=== PATIENT | male | born 1960 | race Caucasian/White ===

== ENCOUNTER → 2018-03-11 | Outpatient (CLI) | payer SELFPAY ==
[2018-03-11 15:05] LABS: HCT 44.8 % (39.0-53.0); HGB 14.8 gm/dL (13.0-17.5); MCH 30.1 pg (25.0-35.0); MCV 91.1 fL (80.0-100.0); Mean Platelet Volume 6.9; Platelet Count 227 k/uL (150-450); RBC 4.91 m/uL (4.30-5.90); RDW 12.8 % (11.5-15.5); WBC 6.4 k/uL (3.8-10.6)
[2018-03-11 15:16] LABS: Anion Gap 6 mmol/L; Blood Urea Nitrogen 17 mg/dL (9-20); Carbon Dioxide 31 mmol/L (22-30); Chloride 104 mmol/L (98-107); Glucose 100 mg/dL (74-99); Potassium 4.3 mmol/L (3.5-5.1); Sodium 141 mmol/L (137-145)
== END ==
LOC: LABPAT 14:21
PROVIDERS: ATTEND Internal Medicine Interventional Cardiology
DX: Z01.812 Encounter for preprocedural laboratory examination (principal); I25.10 Atherosclerotic heart disease of native coronary artery without angina pectoris
CPT/HCPCS: 80051; 82565; 82947; 84520; 85027

== ENCOUNTER 2018-03-12 06:32 | Day surgery (SDC) | payer BC, OTHER ==
[2018-03-12] MEDS ORDERED: ASPIRIN 81 MG ONE (07:05)
[2018-03-12 07:21] VITALS: TEMP 98
[2018-03-12] MEDS ORDERED: VERAPAMIL 2.5 MG/ML 2 ML AMP ONE (07:21)
[2018-03-12] MEDS ORDERED: LIDOCAINE 1% INJ 10MG/ML (20 ML MDV) ONE (07:21)
[2018-03-12] MEDS ORDERED: HEPARIN SODIUM 1,000 UN/ML (10ML VL) ONE (07:22)
[2018-03-12] MEDS ORDERED: ATORVASTATIN 80 MG TAB PO STA (07:26)
[2018-03-12] MEDS ORDERED: ALPRAZolam 0.5 MG TAB PO PRN (07:26)
[2018-03-12] MEDS ORDERED: NITROGLYCERIN SL TABS 0.4 MG TAB SUBLINGUAL PRN (07:26)
[2018-03-12] MEDS ORDERED: SODIUM CHLORIDE 0.9% 1,000 ML in EMPTY BAG 1 BAG IV ONE (07:26)
[2018-03-12] MEDS ORDERED: ASPIRIN 325 MG TAB PO STA (07:26)
[2018-03-12] MEDS ORDERED: ALPRAZolam 0.25 MG TAB PO PRN (07:26)
[2018-03-12] MEDS ORDERED: MIDAZOLAM 2 MG/2 ML VIAL IVP ONE (07:41)
[2018-03-12] MEDS ORDERED: LIDOCAINE 1% INJ 10MG/ML (20 ML MDV) SQ ONE (07:44)
[2018-03-12] MEDS ORDERED: VERAPAMIL SYRINGE (5 MG/10 ML) INTRAARTER ONE (07:46)
[2018-03-12] MEDS ORDERED: fentaNYL (PF) 50 MCG/ML 2 ML AMP ONE (07:50)
[2018-03-12] MEDS ORDERED: MIDAZOLAM 2 MG/2 ML VIAL IV ONE (07:50)
[2018-03-12] MEDS ORDERED: fentaNYL (PF) 50 MCG/ML 2 ML AMP IVP ONE (07:52)
[2018-03-12] MEDS ORDERED: HEPARIN SODIUM 1,000 UN/ML (10ML VL) IV ONE (07:53)
[2018-03-12] MEDS ORDERED: IOPAMIDOL-370 100ML BTL INJ ONE (07:57)
[2018-03-12] MEDS ORDERED: SODIUM CHLORIDE 0.9% 1,000 ML IV SCH (08:15)
[2018-03-12 11:46] VITALS: RESP 16
--- NOTE | 2018-03-12 12:00 | CC ---
CARDIAC CATHETERIZATION REPORT DATE OF SERVICE: 03/12/2018 PROCEDURE: Left heart catheterization and coronary angiography. PERFORMED BY: Dr. Josefina Ibarra. Moderate conscious sedation time was 16 minutes. Patient was administered Versed and fentanyl. His oxygen saturation, hemodynamics and EKG were monitored closely. CLINICAL INFORMATION: Mr. Rubio Godoy is a 57-year-old gentleman with a known history of CAD. In September 2012, he had a non-ST elevation MN and underwent stenting of the proximal and mid RCA and as well as the second obtuse marginal branch of circumflex. Subsequent in June of 2013, he had mid circumflex stented and angioplasty of the first obtuse marginal. Since then, he has done well. I performed a cardiac cath in April of 2014 and the 3 areas of stenting involving the first obtuse marginal, mid circumflex and also the proximal RCA were widely patent. He has been having symptoms of chest tightness, pressure, and jaw discomfort suggestive of angina. However, he had a stress Cardiolite scan which revealed a very mild partial reversible inferoapical lateral defect and therefore was advised cardiac catheterization. Patient is a very active person and does quite a bit of jogging, and seems to have the symptoms suggestive of angina, which are fairly recent. He was advised coronary angiography. Risks, benefits, options, rationale were explained to the patient. PROCEDURE NOTE: Under local anesthesia and strict aseptic precautions, a 6-Arabic introducer was placed in the right radial artery. Using a JR4 and JL35 catheters, I performed coronary angiography and the right catheter was used to check LV pressures. LV gram was not performed. The sheath was taken out and TR band applied as per protocol. The saturation the fingers of the right hand was 97%. Patient received 2000 units of heparin intravenously. The patient tolerated the procedure well without complications. CARDIAC CATHETERIZATION FINDINGS: The left ventricle end-diastolic pressure was about 12 mmHg without any gradient across the aortic valve. CORONARY ANGIOGRAPHY: This right coronary artery is a large dominant vessel, has no significant disease in the proximal area where it was stented is widely patent and distally bifurcates into PDA and PLV, both of which supply a sizable amount of myocardium. No significant disease in the dominant RCA. The stented segment proximally is widely patent. LEFT MAIN CORONARY ARTERY: Short patent vessel free of significant disease that bifurcates into LAD and circumflex. LEFT ANTERIOR DESCENDING CORONARY ARTERY: Good caliber vessel extends along the anterior wall, gives off septal and diagonal branches., runs all the way to the apex, supplies a sizable amount of myocardium. There are minor irregularities but no significant disease is noted. There is no more than 30% to 35% narrowing in the LAD system. LEFT POSTERIOR CIRCUMFLEX CORONARY ARTERY: A nondominant vessel, mid circumflex at the site of stenting is widely patent. First obtuse marginal that was stented and it is widely patent. Second obtuse marginal is also free of significant disease. In fact, this is a continuation of the circumflex vessel. There is no significant disease in the circumflex. LEFT VENTRICULOGRAM: This was not performed. FINAL IMPRESSION: This patient has no significant obstructive coronary artery disease at the site of previous stenting in the mid circumflex, first obtuse marginal as well as proximal right coronary artery are widely patent. He has a right dominant system. Normal filling pressures. No gradient across the aortic valve and left anterior descending artery has no significant disease. RECOMMENDATIONS: Continued medical therapy with risk factor modification is advised and patient will be discharged later on today if he remains stable. MMODL / IJN: [id number] /
[2018-03-12 12:51] VITALS: BP 119/68; PULSE 67
== END 2018-03-12 13:51 | disposition home or self-care (01) ==
LOC: CATHCVL 06:32
PROVIDERS: ATTEND Internal Medicine Interventional Cardiology
DX: R94.39 Abnormal result of other cardiovascular function study (principal); I25.10 Atherosclerotic heart disease of native coronary artery without angina pectoris; Z95.5 Presence of coronary angioplasty implant and graft; E78.00 Pure hypercholesterolemia, unspecified; I10 Essential (primary) hypertension; E78.5 Hyperlipidemia, unspecified; I25.2 Old myocardial infarction; Z79.02 Long term (current) use of antithrombotics/antiplatelets; Z79.82 Long term (current) use of aspirin; Z79.899 Other long term (current) drug therapy
CPT/HCPCS: 93458; C1769; C1894; J2250; J2001; J3010; J1644; Q9967

== ENCOUNTER 2024-05-06 14:01 | Observation (INO) | payer BC, MEDICARE ==
--- NOTE | 2024-05-06 14:56 | ED ---
General Adult HPI - General Chief complaint: Chest Pain Stated complaint: chest pain, chay arm pain Time Seen by Provider: 05/06/24 14:36 Source: EMS Mode of arrival: EMS - History of Present Illness Initial comments: Dictation was produced using [employer] dictation software. please excuse any grammatical, word or spelling errors. Chief Complaint: 64-year-old male with chest pain History of Present Illness: Patient 64-year-old male presents via EMS for chest pain. This morning he had a upper thoracic epidural injection performed by pain specialist. After that injection he started to have some sharp chest pain. States that he has extensive history of heart attacks. His director of guidance is Dr. Ibarra. States that his symptoms feel like previous heart attack. States that the pain radiates down both arms. Not associated diaphoresis or nausea. She given 2 nitro and aspirin by prehospital providers. Nitro improved his symptoms. The ROS documented in this emergency department record has been reviewed and confirmed by me. Those systems with pertinent positive or negative responses have been documented in the HPI. All other systems are other negative and/or noncontributory. - Related Data Home Medications Medication Instructions Recorded Confirmed Atorvastatin [Lipitor] 80 mg PO DAILY 07/25/13 03/12/18 Metoprolol Succinate [Toprol XL] 25 mg PO DAILY 07/25/13 03/12/18 Nitroglycerin Sl Tabs [Nitrostat] 0.4 mg SL Q5M PRN 07/25/13 03/12/18 lisinopriL [Zestril] 2.5 mg PO DAILY 07/25/13 03/12/18 Previous Rx's Medication Instructions Recorded Acetaminophen Tab [Tylenol] 650 mg PO Q4HR PRN #1 tab 04/28/14 Aspirin 81 mg PO DAILY #30 chew 04/28/14 Allergies Allergy/AdvReac Type Severity Reaction Status Date / Time methylprednisolone Allergy Rash/Hives Verified 05/06/24 16:07 [From Medrol] Review of Systems ROS Statement: Those systems with pertinent positive or pertinent negative responses have been documented in the HPI. ROS Other: All systems not noted in ROS Statement are negative. Past Medical History Past Medical History: Coronary Artery Disease (CAD), Chest Pain / Angina, Hyperlipidemia, Hypertension, Myocardial Infarction ([place]) Additional Past Medical History / Comment(s): LEFT LEG FX- STATES WEARING A WALKING "BOOT" SHILNGLES- Last Myocardial Infarction Date:: 09/2012 History of Any Multi-Drug Resistant Organisms: None Reported Past Surgical History: Back Surgery, Heart Catheterization With Stent Additional Past Surgical History / Comment(s): total 3 heart catheterizations HAS 3 STENTS TOTAL, vasectomy, fx left collar bone Past Anesthesia/Blood Transfusion Reactions: No Reported Reaction Date of Last Stent Placement:: 07/09/13 Past Psychological History: No Psychological Hx Reported Smoking Status: Current every day smoker Past Alcohol Use History: Occasional Past Drug Use History: Marijuana - Past Family History Father Family Medical History: Cancer Mother Family Medical History: Cancer General Exam - General Exam Comments Initial Comments: PHYSICAL EXAM: General Impression: Alert and oriented x3, not in acute distress HEENT: Normocephalic atraumatic, extra-ocular movements intact, pupils equal and reactive to light bilaterally, mucous membranes moist. Cardiovascular: Heart regular rate and rhythm Chest: Able to complete full sentences, no retractions, no tachypnea Abdomen: abdomen soft, non-tender, non-distended, no organomegaly Musculoskeletal: Pulses present and equal in all extremities, no peripheral edema Motor: no focal deficits noted Neurological: CN II-XII grossly intact, no focal motor or sensory deficits noted Skin: Intact with no visualized rashes Psych: Normal affect and mood Course Vital Signs 05/06/24 14:26 Temperature 98.7 F Pulse Rate 91 Respiratory 16 Rate Blood Pressure 135/107 O2 Sat by Pulse 98 Oximetry EKG Findings - EKG Comments: EKG Findings:: My EKG interpretation: Ventricular rate 80, sinus rhythm,. 156, QRS 88, QTc 406. No [place] prolongation, no QTC prolongation, no ST or T-wave changes noted. Overall, this EKG is unremarkable Medical Decision Making - Medical Decision Making Was pt. sent in by a medical professional or institution (, PA, CEMENT RAILROAD CAR LOADER, urgent care, hospital, or alf...) When possible be specific @ -No Did you speak to anyone other than the patient for history (EMS, parent, family, police, friend...)? What history was obtained from this source @ -No Did you review nursing and triage notes (agree or disagree)? Why? @ -I reviewed and agree with nursing and triage notes Were old charts reviewed (outside hosp., previous admission, EMS record, old EKG, old radiological studies, urgent care reports/EKG's, alf records)? Report findings @ -No old charts were reviewed Differential Diagnosis (chest pain, altered mental status, abdominal pain women, abdominal pain men, vaginal bleeding, musculoskeletal, weakness, fever, dyspnea, syncope, headache, dizziness, GI bleed, back pain, seizure, CVA, palpatations, mental health)? @ -Differential Chest Pain: Stable Angina, Unstable Angina, STEMI, NSTEMI Aortic Dissection, Pneumothorax, Musculoskeletal, Esophageal Spasm GERD, Cholecystitis, Pancreatitis, Zoster, this is not meant to be an all-inclusive list. EKG interpreted by me (3pts min.). @ -See above X-rays interpreted by me (1pt min.). @ -Chest x-ray is nonacute CT interpreted by me (1pt min.). @ -None done U/S interpreted by me (1pt. min.). @ -None done What testing was considered but not performed or refused? (CT, X-rays, U/S, labs)? Why? @ -None What meds were considered but not given or refused? Why? @ -None Was smoking cessation discussed for >3mins.? @ -No Were there social determinants of health that impacted care today? How? (Homelessness, low income, unemployed, alcoholism, drug addiction, transportation, low edu. Level, literacy, decrease access to med. care, group home, rehab)? @ -No Was there de-escalation of care discussed even if they declined (Discuss DNR or withdrawal of care, Hospice)? DNR status @ -No What co-morbidities impacted this encounter? (DM, HTN, Smoking, COPD, CAD, Cancer, CVA, ARF, Chemo, Hep., AIDS, mental health diagnosis, sleep apnea, morbid obesity)? @ -Coronary artery disease Was patient admitted / discharged? Hospital course, mention meds given and route, prescriptions, significant lab abnormalities, going to OR and other pertinent info. @ -64-year-old male presents to the ER for chest pain. His atypical typical features going signs upon arrival are within acceptable limits. Labs and imaging unremarkable. EKG is nonacute. Discussed with hospitalist for admission. Patient received aspirin by prehospital providers. Did you discuss the management of the patient with other professionals (hortencia yoon ijeff Morris, PA, CEMENT RAILROAD CAR LOADER, lab, RT, psych nurse, social work nurse, manager cardiac, teacher, juvenile detention officer, behavioral health case manager)? Give summary @ -See above Was critical care preformed (if so, how long)? @ -No Undiagnosed new problem with uncertain prognosis? @ -No Drug Therapy requiring intensive monitoring for toxicity (Heparin, Nitro, Insulin, Cardizem)? @ -No Were any procedures done? @ -No Diagnosis/symptom? Acute, or Chronic, or Acute on Chronic? Uncomplicated (without systemic symptoms) or Complicated (systemic symptoms)? @ -Chest pain Side effects of treatment? @ -No Exacerbation, Progression, or Severe Exacerbation? @ -No Poses a threat to life or bodily function? How? (Chest pain, [place], [place], pneumonia, PE, COPD, DKA, ARF, appy, cholecystitis, CVA, Diverticulitis, Homicidal, Suicidal, threat to staff... and all critical care pts) @ -yes - Lab Data Result diagrams: 05/06/24 14:48 05/06/24 14:55 Lab Results 05/06/24 05/06/24 05/06/24 Range/Units 14:48 14:55 14:55 WBC 6.3 (3.8-10.6) k/uL RBC 5.28 (4.30-5.90) m/uL Hgb 15.6 (13.0-17.5) gm/dL Hct 47.5 (39.0-53.0) % MCV 90.0 (80.0-100.0) fL MCH 29.5 (25.0-35.0) pg MCHC 32.8 (31.0-37.0) g/dL RDW 12.5 (11.5-15.5) % Plt Count 249 (150-450) k/uL MPV 7.8 Neutrophils % 87 % Lymphocytes % 11 % Monocytes % 2 % Eosinophils % 0 % Basophils % 0 % Neutrophils # 5.5 (1.3-7.7) k/uL Lymphocytes # 0.7 L (1.0-4.8) k/uL Monocytes # 0.1 (0-1.0) k/uL Eosinophils # 0.0 (0-0.7) k/uL Basophils # 0.0 (0-0.2) k/uL PT 10.5 (10.0-12.5) sec INR 0.9 (<1.2) APTT 23.9 (22.0-30.0) sec Sodium 138 (137-145) mmol/L Potassium 4.1 (3.5-5.1) mmol/L Chloride 103 (98-107) mmol/L Carbon Dioxide 23 (22-30) mmol/L Anion Gap 12 mmol/L BUN 16 (9-20) mg/dL Creatinine 0.80 (0.66-1.25) mg/dL Est GFR (CKD-EPI)AfAm >90 (>60 ml/min/1.73 sqM) Est GFR (CKD-EPI)NonAf >90 (>60 ml/min/1.73 sqM) Glucose 121 H (74-99) mg/dL Calcium 9.5 (8.4-10.2) mg/dL Magnesium 2.3 (1.6-2.3) mg/dL Total Bilirubin 1.6 H (0.2-1.3) mg/dL AST 29 (17-59) U/L ALT 29 (4-49) U/L Alkaline Phosphatase 74 (38-126) U/L Troponin I (0.000-0.034) ng/mL Total Protein 7.8 (6.3-8.2) g/dL Albumin 4.9 (3.5-5.0) g/dL 05/06/24 Range/Units 14:55 WBC (3.8-10.6) k/uL RBC (4.30-5.90) m/uL Hgb (13.0-17.5) gm/dL Hct (39.0-53.0) % MCV (80.0-100.0) fL MCH (25.0-35.0) pg MCHC (31.0-37.0) g/dL RDW (11.5-15.5) % Plt Count (150-450) k/uL MPV Neutrophils % % Lymphocytes % % Monocytes % % Eosinophils % % Basophils % % Neutrophils # (1.3-7.7) k/uL Lymphocytes # (1.0-4.8) k/uL Monocytes # (0-1.0) k/uL Eosinophils # (0-0.7) k/uL Basophils # (0-0.2) k/uL PT (10.0-12.5) sec INR (<1.2) APTT (22.0-30.0) sec Sodium (137-145) mmol/L Potassium (3.5-5.1) mmol/L Chloride (98-107) mmol/L Carbon Dioxide (22-30) mmol/L Anion Gap mmol/L BUN (9-20) mg/dL Creatinine (0.66-1.25) mg/dL Est GFR (CKD-EPI)AfAm (>60 ml/min/1.73 sqM) Est GFR (CKD-EPI)NonAf (>60 ml/min/1.73 sqM) Glucose (74-99) mg/dL Calcium (8.4-10.2) mg/dL Magnesium (1.6-2.3) mg/dL Total Bilirubin (0.2-1.3) mg/dL AST (17-59) U/L ALT (4-49) U/L Alkaline Phosphatase (38-126) U/L Troponin I <0.012 (0.000-0.034) ng/mL Total Protein (6.3-8.2) g/dL Albumin (3.5-5.0) g/dL Disposition Clinical Impression: Chest pain Disposition: ADMITTED IP TO THIS HOSP Condition: Fair Referrals: Martin Escalante MD [Primary Care Provider] - 1-2 days Decision Time: 16:20
[2024-05-06 15:02] LABS: Basophils % (A) 0 %; Eosinophils % (A) 0 %; HCT 47.5 % (39.0-53.0); HGB 15.6 gm/dL (13.0-17.5); Lymphocytes # (A) 0.7 k/uL (1.0-4.8); Lymphocytes % (A) 11 %; MCH 29.5 pg (25.0-35.0); MCHC 32.8 g/dL (31.0-37.0); Mean Platelet Volume 7.8; Monocytes # (A) 0.1 k/uL (0-1.0); Monocytes % (A) 2 %; Neutrophils # (A) 5.5 k/uL (1.3-7.7); Neutrophils % (A) 87 %; Platelet Count 249 k/uL (150-450); RBC 5.28 m/uL (4.30-5.90); RDW 12.5 % (11.5-15.5); WBC 6.3 k/uL (3.8-10.6)
[2024-05-06 15:12] LABS: INR 0.9 (<1.2); Partial Thromboplastin Time 23.9 sec (22.0-30.0); Prothrombin Time 10.5 sec (10.0-12.5)
[2024-05-06 15:21] LABS: ALT 29 U/L (4-49); AST 29 U/L (17-59); African American GFR (CKD) >90 (>60 ml/min/1.73 sqM); Albumin 4.9 g/dL (3.5-5.0); Alkaline Phosphatase 74 U/L (38-126); Anion Gap 12 mmol/L; Blood Urea Nitrogen 16 mg/dL (9-20); Calcium 9.5 mg/dL (8.4-10.2); Carbon Dioxide 23 mmol/L (22-30); Chloride 103 mmol/L (98-107); Glucose 121 mg/dL (74-99); Magnesium 2.3 mg/dL (1.6-2.3); Non-African American GFR(CKD) >90 (>60 ml/min/1.73 sqM); Potassium 4.1 mmol/L (3.5-5.1); Sodium 138 mmol/L (137-145); Total Bilirubin 1.6 mg/dL (0.2-1.3); Total Protein 7.8 g/dL (6.3-8.2)
--- NOTE | 2024-05-06 15:48 | XR ---
EXAMINATION TYPE: XR chest 2V DATE OF EXAM: 05/06/2024 3:38 PM COMPARISON: Chest radiographs from 04/27/2014 CLINICAL INDICATION: Male, 64 years old with history of Chest Pain; TECHNIQUE: XR chest 2V Frontal and lateral views of the chest. FINDINGS: Lungs/Pleura: There is no evidence of pleural effusion, focal consolidation, or pneumothorax. Pulmonary vascularity: Unremarkable. Heart/mediastinum: Cardiomediastinal silhouette is unremarkable. Musculoskeletal: No acute osseous pathology. There is fixation hardware in the lower cervical spine. Other findings: Embolization coil in the right neck. IMPRESSION: No acute cardiopulmonary disease/process. [facility], , 05/06/2024 3:46 PM
[2024-05-06] MEDS ORDERED: NITROGLYCERIN SL TABS 0.4 MG TAB SUBLINGUAL PRN (16:08)
[2024-05-06] MEDS ORDERED: ACETAMINOPHEN TAB 325 MG TAB PO PRN (18:57)
[2024-05-06] MEDS: TAMSULOSIN 0.4 MG CAP.ER.24H PO SCH (20:31)
[2024-05-07] MEDS: CALCIUM CARBONATE 500 MG CHEWABLE PO ONE (06:19)
[2024-05-07] MEDS: PANTOPRAZOLE 40 MG TABLET PO SCH (06:19)
[2024-05-07 08:04] VITALS: BP 130/78; PULSE 77; RESP 18; TEMP 98
[2024-05-07] MEDS ORDERED: AMINOPHYLLINE 500 MG/20 ML VIAL IV PRN (08:33)
[2024-05-07] MEDS ORDERED: CAFFEINE CITRATE 60 MG/3 ML VIAL IV PRN (08:33)
[2024-05-07] MEDS ORDERED: REGADENOSON 0.4 MG/5 ML SYRINGE IV PRN (08:33)
[2024-05-07 08:49] LABS: Chol/HDL Ratio 2.63 Ratio; LDL Cholesterol,Calculated 72.2 mg/dL (0.0-131.0); VLDL Calculation 17.56 mg/dL (5.00-40.00)
[2024-05-07] MEDS ORDERED: ASPIRIN 325 MG TAB PO SCH (09:00)
--- NOTE | 2024-05-07 10:28 | P.CRDCN ---
History of Present Illness History of present illness: HISTORY OF PRESENT ILLNESS: This is a 64-year-old male with a past medical history significant for coronary artery disease with previous stenting, hyperlipidemia, hypertension, chronic ne ck pain, and prostate cancer in 2019. Patient follows in the office with Dr. Ibarra. We have been asked to see the patient in consultation for chest pain. Patient examined at the bedside. Patient states yesterday he underwent a epidural injection secondary to chronic neck pain. He states this was performed down in [place]. He states this is the first time that he had received an epidural injection. He reports that he was having significant pain in his spine when he was leaving the office yesterday and could barely walk. He states that he had an hour drive home and for most of the drive home he was in significant pain in his back and then also began to have chest pain. He states that he could hardly walk into the house due to his back and chest pain. He called his physician who performed the epidural injection and apparently was told it was not caused from the injection and instructed him to seek medical attention. The patient reports having very mild chest pressure this morning. He states the pain is similar to when he had previous stenting except for he had jaw pain at that time also. He states the pain lasted for approximately 4 to 5 hours. He reports it felt like a stabbing sensation in the middle of his chest. He was also diaphoretic. He did take 2 nitro tablets with improvement in his chest pain. He states that he walked in the hallway this morning and felt short of breath which is not normal for him. DIAGNOSTICS: - EKG reveals sinus mechanism with no signs of acute ischemia. - Chest xray negative for acute process. - Laboratory data: WBC 6.3. Hemoglobin 15.6. Platelet count 249. Sodium 138. Potassium 4.1. BUN 16. Creatinine 0.80. Troponin negative x 3. - Current home cardiac medications include metoprolol succinate 25 mg daily, aspirin 81 mg daily, amlodipine 10 mg daily, Plavix 75 mg daily, atorvastatin 80 mg daily - Most recent echocardiogram obtained in August 2023 revealing ejection fraction 55% - Patient underwent stress echo in August 2023 which was negative for ischemia - Cardiac catheterization history: February 2018 revealing no significant obstructive CAD at the site of previously stented mid circumflex, first obtuse marginal as well as proximal RCA are widely patent. Right dominant system. Normal filling pressures. No gradient across the aortic valve and LAD has no significant disease. REVIEW OF SYSTEMS: At the time of my exam: CONSTITUTIONAL: Denies fever or chills. HEENT: Denies blurred vision, vision changes, or eye pain. Denies hemoptysis CARDIOVASCULAR: Denies chest pain. Denies orthopnea. Denies PND. Denies palpitations RESPIRATORY: Denies shortness of breath. GASTROINTESTINAL: Denies abdominal pain. Denies nausea or vomiting. HEMATOLOGIC: Denies bleeding disorders. GENITOURINARY: Denies any blood in urine. SKIN: Denies pruitis. Denies rash. PHYSICAL EXAM: VITAL SIGNS: Reviewed. GENERAL: Well-developed in no acute distress. HEENT: Head is normocephalic. Pupils are equal, round. Sclerae anicteric. Mucous membranes of the mouth are moist. Neck supple. No JVD or thyromegaly LUNGS: Respirations even and unlabored. Lungs essentially clear to auscultation bilaterally. HEART: Regular rate and rhythm. S1 and S2 heard. ABDOMEN: Soft. Nondistended. Nontender. EXTREMITIES: Normal range of motion. No clubbing or cyanosis. Peripheral pulses intact. No lower extremity edema NEUROLOGIC: Awake and alert. Oriented x 3. ASSESSMENT: Chest pain, troponin negative x 3 Chronic neck pain, status post epidural injection 05/06/2024 Coronary artery disease with previous stenting Hypertension Hyperlipidemia History of prostate cancer, 2019 PLAN: An acute coronary event has been ruled out Obtain 2D echo to assess cardiac structure and function Resume home cardiac medications including metoprolol, aspirin, amlodipine, Plavix, and atorvastatin Patient to undergo Lexiscan stress test today If negative, patient may be discharged home from a cardiac standpoint Patient to follow-up postdischarge in the office with Dr. Ibarra Nurse practitioner note has been reviewed by physician. Signing provider agrees with the documented findings, assessment, and plan of care documented by BILLING ADJUDICATOR as a scribe. Past Medical History Past Medical History: Coronary Artery Disease (CAD), Chest Pain / Angina, Hyperlipidemia, Hypertension, Myocardial Infarction ([place]) Additional Past Medical History / Comment(s): LEFT LEG FX- STATES WEARING A W ALKING "BOOT" SHILNGLES- Last Myocardial Infarction Date:: 09/2012 History of Any Multi-Drug Resistant Organisms: None Reported Past Surgical History: Back Surgery, Heart Catheterization With Stent Additional Past Surgical History / Comment(s): total 3 heart catheterizations HAS 3 STENTS TOTAL, vasectomy, fx left collar bone Past Anesthesia/Blood Transfusion Reactions: No Reported Reaction Date of Last Stent Placement:: 07/09/13 Past Psychological History: No Psychological Hx Reported Smoking Status: Current every day smoker Past Alcohol Use History: Occasional Past Drug Use History: Marijuana - Past Family History Father Family Medical History: Cancer Mother Family Medical History: Cancer Medications and Allergies Home Medications Medication Instructions Recorded Confirmed Type Atorvastatin [Lipitor] 80 mg PO DAILY 07/25/13 05/06/24 History Metoprolol Succinate [Toprol XL] 25 mg PO DAILY 07/25/13 05/06/24 History Aspirin 81 mg PO DAILY #30 chew 04/28/14 05/06/24 Rx Clopidogrel [Plavix] 75 mg PO DAILY 05/06/24 05/06/24 History Multivit-Minerals/FA/Lycopene 1 tab PO DAILY 05/06/24 05/06/24 History [One-A-Day Men's 50 Plus Tablet] Tamsulosin [Flomax] 0.4 mg PO HS 05/06/24 05/06/24 History amLODIPine [Norvasc] 10 mg PO DAILY 05/06/24 05/06/24 History tadalafiL 5 mg PO DAILY 05/06/24 05/06/24 History Allergies Allergy/AdvReac Type Severity Reaction Status Date / Time methylprednisolone Allergy Rash/Hives Verified 05/06/24 16:38 [From Medrol] Physical Exam Vitals: Vital Signs Temp Pulse Pulse Resp BP BP Pulse Ox 05/07/24 07:00 98.0 F 77 18 130/78 96 05/07/24 02:00 97.8 F 75 17 107/62 98 05/06/24 20:00 98.0 F 94 17 132/78 94 L 05/06/24 18:28 98.0 F 101 H 17 142/86 97 05/06/24 18:01 98.1 F 83 19 136/80 98 05/06/24 17:43 98 18 109/87 99 05/06/24 16:29 88 17 140/95 96 05/06/24 14:26 98.7 F 91 16 135/107 98 Intake and Output 03/11/25 03/12/25 03/12/25 22:59 06:59 14:59 Other: # Voids 2 2 Weight 88.451 kg Results 05/06/24 14:48 05/06/24 14:55 Cardiac Enzymes 05/06/24 05/06/24 05/06/24 Range/Units 14:55 14:55 17:51 AST 29 (17-59) U/L Troponin I <0.012 <0.012 (0.000-0.034) ng/mL 05/06/24 Range/Units 20:52 AST (17-59) U/L Troponin I <0.012 (0.000-0.034) ng/mL Coagulation 05/06/24 Range/Units 14:55 PT 10.5 (10.0-12.5) sec APTT 23.9 (22.0-30.0) sec CBC 05/06/24 Range/Units 14:48 WBC 6.3 (3.8-10.6) k/uL RBC 5.28 (4.30-5.90) m/uL Hgb 15.6 (13.0-17.5) gm/dL Hct 47.5 (39.0-53.0) % Plt Count 249 (150-450) k/uL Comprehensive Metabolic Panel 05/06/24 Range/Units 14:55 Sodium 138 (137-145) mmol/L Potassium 4.1 (3.5-5.1) mmol/L Chloride 103 (98-107) mmol/L Carbon Dioxide 23 (22-30) mmol/L BUN 16 (9-20) mg/dL Creatinine 0.80 (0.66-1.25) mg/dL Glucose 121 H (74-99) mg/dL Calcium 9.5 (8.4-10.2) mg/dL AST 29 (17-59) U/L ALT 29 (4-49) U/L Alkaline Phosphatase 74 (38-126) U/L Total Protein 7.8 (6.3-8.2) g/dL Albumin 4.9 (3.5-5.0) g/dL Current Medications Generic Name Dose Route Start Last Admin Trade Name Freq PRN Reason Stop Dose Admin Acetaminophen 650 mg 05/06/24 18:57 Acetaminophen Tab 325 Mg Tab PO Q6HR PRN Fever and/ or Pain Amlodipine Besylate 10 mg 05/07/24 09:00 Amlodipine 10 Mg Tab PO DAILY [facility] Aspirin 81 mg 05/07/24 09:00 Aspirin 81 Mg PO DAILY [facility] Atorvastatin Calcium 80 mg 05/07/24 09:00 Atorvastatin 80 Mg Tab PO DAILY [facility] Clopidogrel Bisulfate 75 mg 05/07/24 09:00 Clopidogrel 75 Mg Tab PO DAILY [facility] Metoprolol Succinate 25 mg 05/07/24 09:00 Metoprolol Succinate (Er) 25 Mg Tab.Er.24h PO DAILY [facility] Nitroglycerin 0.4 mg 05/06/24 16:08 Nitroglycerin Sl Tabs 0.4 Mg Tab SUBLINGUAL Q5M PRN Chest Pain Pantoprazole Sodium 40 mg 05/07/24 07:30 05/07/24 06:19 Pantoprazole 40 Mg Tablet PO 40 mg [id number] Administration Tamsulosin HCl 0.4 mg 05/06/24 21:00 05/06/24 20:31 Tamsulosin 0.4 Mg Cap.Er.24h PO 0.4 mg HS [facility] Administration Intake and Output 05/06/24 05/07/24 05/07/24 22:59 06:59 14:59 Other: # Voids 2 2 Weight 88.451 kg 05/06/24 14:48 05/06/24 14:55
[2024-05-07] MEDS: METOPROLOL SUCCINATE (ER) 25 MG TAB.ER.24H PO SCH (11:17)
[2024-05-07] MEDS: ATORVASTATIN 80 MG TAB PO SCH (11:17)
[2024-05-07] MEDS: amLODIPine 10 MG TAB PO SCH (11:17)
[2024-05-07] MEDS: CLOPIDOGREL 75 MG TAB PO SCH (11:17)
[2024-05-07] MEDS: ASPIRIN 81 MG PO SCH (11:17)
--- NOTE | 2024-05-07 11:17 | NM ---
EXAMINATION TYPE: NM stress lexiscan cardiolite DATE OF EXAM: 05/07/2024 COMPARISON: NONE CLINICAL INDICATION: Male, 64 years old with history of CP; history of hypertension, hypercholesterem ia, and prior heart attack with angioplasty. TECHNIQUE: After the intravenous administration of 10.29 mCi Tc 99m Sestamibi - Cardiolite resting S PECT images acquired 45 minutes post injection. The patient received 0.4mg Lexiscan, 25.5 mCi Tc 99m Sestamibi - Stress images obtained [address] injection FINDINGS: Review of stress and rest SPECT images demonstrates no distinct perfusion abnormality. Gated analysi s shows normal wall motion with an estimated left ventricular ejection fraction of 69 %. IMPRESSION: No scintigraphic evidence for reversible ischemia. [facility], , 05/07/2024 11:15 AM
--- NOTE | 2024-05-07 13:10 | CA ---
Lexiscan Nuclear Stress Test Report Name: Rubio Godoy Exam Date: 05/07/2024 10:02 Exam Location: [place] Stress Ht (in): 70 Wt (lb): 195 BSA: 2.06 Ordering Phys: Nora Fried Referring Phys: WISAM Technologist: Van Henderson Age: 64 Gender: M : 1960 Procedure CPT: Indications: Reflex order-Stress test ICD-10 Codes: Patient History: CHEST PAIN, [place], HTN, HYPERCHOLESTEROLEMIA, PRIOR MO, PRIOR CATH WITH 3 STENTS Medications: Meds past 24 hrs: Pretest Chest Pain: STRESS TEST Lexiscan Protocol Exercise Duration (min:sec): 02:[address] Depressions (mm): Angina Score: March Score: Resting HR (bpm): 68 Peak HR (bpm): 110 Resting BP (mmHg): 146 / 70 Peak BP (mmHg): 180 / 88 MPHR: 155 Target HR: 132 % MPHR: 71 METS: 1.0 Total Dose: Peak Dose: Atropine: Double Product: 14900 BP Response: Stress Termination: INFUSION COMPLETE Stress Symptoms: NO SYMPTOMS Stress Summary: ECG ANALYSIS Resting ECG: Sinus rhythm. Normal conduction. No arrhythmias. Normal repolarization. Stress ECG: No ECG changes from baseline with Lexiscan infusion. CONCLUSIONS No ECG evidence of ischemia with Lexiscan infusion. Nuclear test results to follow. Dr. Yoshi Nguyễn MD (Electronically Signed) Final Date: 07 May 2024 13:09
--- NOTE | 2024-05-07 14:42 | P.HPIM ---
History of Present Illness H&P Date: 05/07/24 This is a 64 remail with medical history significant for coronary artery disease with prior PCI, chest pain, hypertension, hyperlipidemia. Patient received an epidural injection to his lower cervical/upper thoracic spine yesterday, postprocedure he developed sharp midsternal chest pain. Patient states that the pain did radiate down both arms he had no nausea diaphoresis. He had no shortness of breath. Patient was given 2 nitro and aspirin prior to coming to the hospital and the nitro did help his symptoms. Patient does state that about 1 week ago he and his had an upper respiratory infection his tested positive for COVID he tested negative multiple times. He does have a mild r esidual cough and states that the chest does hurt worse with coughing. He came in for further evaluation initial EKG reveals sinus rhythm with heart rate of [address] or T wave changes. Chest x-ray reveals no acute cardiopulmonary disease/process. Troponin level has been negative x 3. His blood work is essentially unremarkable. Total bilirubin is mildly elevated at 1.6. Glucose level is 121. Lipid panel reveals triglycerides of 87.8 cholesterol 145 LDL of 72 and HDL of 55. Patient was admitted to the hospital for cardiac consultation. He is currently pending stress test evaluation. REVIEW OF SYSTEMS: CONSTITUTIONAL: No fever, no malaise, no fatigue. HEENT: No recent visual problems or hearing problems. Denied any sore throat. CARDIOVASCULAR: No chest pain, orthopnea, PND, no palpitations, no syncope. PULMONARY: No shortness of breath, no cough, no hemoptysis. GASTROINTESTINAL: No diarrhea, no nausea, no vomiting, no abdominal pain. NEUROLOGICAL: No headaches, no weakness, no numbness. HEMATOLOGICAL: Denies any bleeding or petechiae. GENITOURINARY: Denies any burning micturition, frequency, or urgency. MUSCULOSKELETAL/RHEUMATOLOGICAL: Denies any joint pain, swelling, or any muscle pain. ENDOCRINE: Denies any polyuria or polydipsia. The rest of the 14-point review of systems is negative. PHYSICAL EXAMINATION: GENERAL: The patient is alert and oriented x3, not in any acute distress. Well developed, well nourished. HEENT: Pupils are round and equally reacting to light. EOMI. No scleral icterus. No conjunctival pallor. Normocephalic, atraumatic. No pharyngeal erythema. No thyromegaly. CARDIOVASCULAR: S1 and S2 present. No murmurs, rubs, or gallops. PULMONARY: Chest is clear to auscultation, no wheezing or crackles. ABDOMEN: Soft, nontender, nondistended, normoactive bowel sounds. No palpable organomegaly. MUSCULOSKELETAL: No joint swelling or deformity. EXTREMITIES: No cyanosis, clubbing, or pedal edema. NEUROLOGICAL: Gross neurological examination did not reveal any focal deficits. SKIN: No rashes. Assessment and Plan Acute chest pain, atypical rule out ACS Neck pain, chronic with epidural injection into the lower cervical/upper thoracic spine on 05/06/2024 History of coronary artery disease with prior PCI Hypertension Hyperlipidemia Plan Cardiac consultation Pending Lexiscan stress test Resume appropriate home medications Pain has resolved at this time If lexiscan negative patient can be cleared for discharge home to follow up with naturopathic oncology provider in 1 to 2 weeks. The impression and plan of care has been dictated by Ana Rossi Nurse Practitioner as directed. Dr. Loen MD I have performed a history and physical examination and medical decision making of this patient, discussed the same with the dictator, and agree with the dictators assessment and plan as written, documented as a scribe. Based on total visit time, I have performed more than 50% of this visit. Past Medical History Past Medical History: Coronary Artery Disease (CAD), Chest Pain / Angina, H yperlipidemia, Hypertension, Myocardial Infarction (IA) Additional Past Medical History / Comment(s): LEFT LEG FX- STATES WEARING A WALKING "BOOT" SHILNGLES- Last Myocardial Infarction Date:: 09/2012 History of Any Multi-Drug Resistant Organisms: None Reported Past Surgical History: Back Surgery, Heart Catheterization With Stent Additional Past Surgical History / Comment(s): total 3 heart catheterizations HAS 3 STENTS TOTAL, vasectomy, fx left collar bone Past Anesthesia/Blood Transfusion Reactions: No Reported Reaction Date of Last Stent Placement:: 07/09/13 Past Psychological History: No Psychological Hx Reported Smoking Status: Current every day smoker Past Alcohol Use History: Occasional Past Drug Use History: Marijuana - Past Family History Father Family Medical History: Cancer Mother Family Medical History: Cancer Medications and Allergies Home Medications Medication Instructions Recorded Confirmed Type Atorvastatin [Lipitor] 80 mg PO DAILY 07/25/13 05/06/24 History Metoprolol Succinate [Toprol XL] 25 mg PO DAILY 07/25/13 05/06/24 History Aspirin 81 mg PO DAILY #30 chew 04/28/14 05/06/24 Rx Clopidogrel [Plavix] 75 mg PO DAILY 05/06/24 05/06/24 History Multivit-Minerals/FA/Lycopene 1 tab PO DAILY 05/06/24 05/06/24 History [One-A-Day Men's 50 Plus Tablet] Tamsulosin [Flomax] 0.4 mg PO HS 05/06/24 05/06/24 History amLODIPine [Norvasc] 10 mg PO DAILY 05/06/24 05/06/24 History tadalafiL 5 mg PO DAILY 05/06/24 05/06/24 History Pantoprazole [Protonix] 40 mg PO AC-BRKFST #30 tab 05/07/24 Rx Allergies Allergy/AdvReac Type Severity Reaction Status Date / Time methylprednisolone Allergy Rash/Hives Verified [facility]/06[facility]24 16:38 [facility] Physical Exam Vitals: Vital Signs Temp Pulse Pulse Resp BP BP Pulse Ox 05/07/24 07:00 98.0 F 77 18 130/78 96 05/07/24 02:00 97.8 F 75 17 107/62 98 05/06/24 20:00 98.0 F 94 17 132/78 94 L 05/06/24 18:28 98.0 F 101 H 17 142/86 97 05/06/24 18:01 98.1 F 83 19 136/80 98 05/06/24 17:43 98 18 109/87 99 05/06/24 16:29 88 17 140/95 96 05/06/24 14:26 98.7 F 91 16 135/107 98 Intake and Output 05/06/24 05/07/24 05/07/24 22:59 06:59 14:59 Other: # Voids 2 2 Weight 88.451 kg Results CBC & Chem 7: 05/06/24 14:48 05/06/24 14:55 Labs: Abnormal Lab Results - Last 24 Hours (Table) 05/06/24 05/06/24 Range/Units 14:48 14:55 Lymphocytes # 0.7 L (1.0-4.8) k/uL Glucose 121 H (74-99) mg/dL Total Bilirubin 1.6 H (0.2-1.3) mg/dL Thrombosis Risk Factor Assmnt - Choose All That Apply Each Risk Factor Represents 2 Points: Age 61-74 years Thrombosis Risk Factor Assessment Total Risk Factor Score: 2 Thrombosis Risk Factor Assessment Level: Low Risk Assessment and Plan Time with Patient: Less than 30
--- NOTE | 2024-05-08 22:18 | P.DS ---
Providers Date of admission: 05/06/24 16:11 Attending physician: Shivani Le Consults: 05/06/24 16:08 Consult Physician Urgent Consulting Provider: Jake Marie Consult Reason/Comments: chest pain Do you want consulting provider notified?: Yes Primary care physician: Martin Escalante MD Hospital Course: Final Diagnosis Acute chest pain, atypical rule out ACS Neck pain, chronic with epidural injection into the lower cervical/upper thoracic spine on 05/06/2024 History of coronary artery disease with prior PCI Hypertension Hyperlipidemia Discharge Disposition Patient stable for discharge home. He has negative Lexiscan. Negative D-dimer. Negative troponin levels. His chest pain is gone at this time. 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 Marie has an appointment scheduled for May 14. Hospital Course This is a 64 remail with medical history significant for coronary artery disease with prior PCI, chest pain, hypertension, hyperlipidemia. Patient received an epidural injection to his lower cervical/upper thoracic spine yesterday, postprocedure he developed sharp midsternal chest pain. Patient states that the pain did radiate down both arms he had no nausea diaphoresis. He had no shortness of breath. Patient was given 2 nitro and aspirin prior to coming to the hospital and the nitro did help his symptoms. Patient does state that about 1 week ago he and his had an upper respiratory infection his tested positive for COVID he tested negative multiple times. He does have a mild residual cough and states that the chest does hurt worse with coughing. He came in for further evaluation initial EKG reveals sinus rhythm with heart rate of [address] or T wave changes. Chest x-ray reveals no acute cardiopulmonary disease/process. Troponin level has been negative x 3. His blood work is essentially unremarkable. Total bilirubin is mildly elevated at 1.6. Glucose level is 121. Lipid panel reveals triglycerides of 87.8 cholesterol 145 LDL of 72 and HDL of 55. Patient was admitted to the hospital for cardiac consultation. Patient underwent Lexiscan stress test with no scintigraphic evidence for reversible ischemia. His ejection fraction is 65%. His chest pain is gone and he will be discharged home. Please see medication reconciliation for a list of current medications. Thank you for allowing us to participate in the care of this patient. The impression and plan of care has been dictated by Ana Rossi, Nurse Practitioner as directed. Dr. Leon MD I have performed a history and physical examination and medical decision making of this patient, discussed the same with the dictator, and agree with the dictators assessment and plan as written, documented as a scribe. Based on total visit time, I have performed more than 50% of this visit. Patient Condition at Discharge: Stable Plan - Discharge Summary Discharge Rx Participant: No New Discharge Prescriptions: New Pantoprazole [Protonix] 40 mg PO AC-BRKFST #30 tab Continue Metoprolol Succinate [Toprol XL] 25 mg PO DAILY Atorvastatin [Lipitor] 80 mg PO DAILY Aspirin 81 mg PO DAILY #30 chew tadalafiL 5 mg PO DAILY Tamsulosin [Flomax] 0.4 mg PO HS Clopidogrel [Plavix] 75 mg PO DAILY Multivit-Minerals/FA/Lycopene [One-A-Day Men's 50 Plus Tablet] 1 tab PO DAILY amLODIPine [Norvasc] 10 mg PO DAILY Discharge Medication List Atorvastatin [Lipitor] 80 mg PO DAILY 07/25/13 [History] Metoprolol Succinate [Toprol XL] 25 mg PO DAILY 07/25/13 [History] Aspirin 81 mg PO DAILY #30 chew 04/28/14 [Rx] Clopidogrel [Plavix] 75 mg PO DAILY 05/06/24 [History] Multivit-Minerals/FA/Lycopene [One-A-Day Men's 50 Plus Tablet] 1 tab PO DAILY 05/06/24 [History] Tamsulosin [Flomax] 0.4 mg PO HS 05/06/24 [History] amLODIPine [Norvasc] 10 mg PO DAILY 05/06/24 [History] tadalafiL 5 mg PO DAILY 05/06/24 [History] Pantoprazole [Protonix] 40 mg PO AC-BRKFST #30 tab 05/07/24 [Rx] Follow up Appointment(s)/Referral(s): Jake Marie MD [Medical Doctor] - 05/14/24 9:15 am Martin Escalante MD [Primary Care Provider] - 1-2 days Discharge Disposition: HOME SELF-CARE
== END 2024-05-07 14:14 | disposition home or self-care (01) ==
LOC: EC 14:01 → 6NMEDSUR 16:11
PROVIDERS: ADMIT Hospitalist; ATTEND Hospitalist
DX: R07.89 Other chest pain (principal); G89.29 Other chronic pain; M54.2 Cervicalgia; I25.10 Atherosclerotic heart disease of native coronary artery without angina pectoris; E78.5 Hyperlipidemia, unspecified; I10 Essential (primary) hypertension; M54.9 Dorsalgia, unspecified; R61 Generalized hyperhidrosis; R05.9 Cough, unspecified; R06.02 Shortness of breath; F17.200 Nicotine dependence, unspecified, uncomplicated; Z79.02 Long term (current) use of antithrombotics/antiplatelets; I25.2 Old myocardial infarction; Z79.82 Long term (current) use of aspirin; Z79.899 Other long term (current) drug therapy; Z88.8 Allergy status to other drugs, medicaments and biological substances; Z98.890 Other specified postprocedural states; Z95.5 Presence of coronary angioplasty implant and graft; Z85.46 Personal history of malignant neoplasm of prostate
CPT/HCPCS: 99285; 36415; 93005; 93017; 85379; 80061; 80053; 83735; 84484; 85025; 85610; 85730; 71046; 78452; G0378 ×2; A9500; J2785